=== PATIENT | female | born 1960 | race Caucasian/White ===

== ENCOUNTER 2016-06-12 17:42 | Emergency (ER) | payer BC, OTHER ==
[2016-06-12 18:13] VITALS: BP 122/67
--- NOTE | 2016-06-12 18:44 | UC ---
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 Negative: Redness, Bruising , Fever, Weakness, Numbness, Tingling - Allergies/Home Medications Allergies/Adverse Reactions: Allergies Allergy/AdvReac Type Severity Reaction Status Date / Time Aspirin Allergy Intermediate GI Upset Verified 06/12/16 18:13 Sulfa Drugs Allergy Unknown Unknown Verified 06/12/16 18:13 Reaction Details PMH/Surg Hx/FS Hx/Imm Hx Endocrine History Of: Reports: Thyroid Disease - HYPER Denies: Diabetes Cardiovascular History Of: Denies: Cardiac Disorders, Hypertension Respiratory History Of: Denies: COPD, Asthma GI/ History Of: Denies: Ulcer - Surgical History Surgical History: Yes Surgery Procedure, Year, and Place: C SECT[facility] X'S 2 - Family History Known Family History: Negative: Diabetes - Social History Alcohol Use: None Substance Use Type: None Smoking Status (MU): Heavy Every Day Tobacco Smoker Type: Cigarettes Amount Used/How Often: 1/2 PPD Length of Time of Smoking/Using Tobacco: 10 YRS Have You Smoked in the Last Year: Yes Review of Systems Constitutional: Negative Skin: Negative Eyes: Negative ENT: Negative Respiratory: Negative Cardiovascular: Negative All Other Systems Reviewed And Are Negative: Yes Physical Exam Triage Information Reviewed: Yes Appearance: Well-Appearing, No Pain Distress, Well-Nourished Vital Signs: Initial Vital Signs Temp 99.2 F 06/12/16 18:10 Pulse 74 06/12/16 18:10 Resp 16 06/12/16 18:10 BP 122/67 06/12/16 18:10 Pulse Ox 96 06/12/16 18:10 Vital Signs Reviewed: Yes Eyes: Positive: Conjunctiva Clear ENT: Positive: Normal ENT inspection, Hearing grossly normal Neck exam: Normal Respiratory: Positive: Chest non-tender, Lungs clear, Normal breath sounds Cardiovascular: Positive: RRR, No Murmur, Pulses Normal Musculoskeletal: Positive: Other: - LEFT KNEE : + SWELLING, + EFFUSION, + DIFFUSE TENDERNESS, LIMITED ROM ON FLEXION , LIGAMENTS ARE STABLE Knee Pain Course/Dx - Differential Dx/Diagnosis Provider Diagnoses: LEFT KNEE PAIN. LEFT KNEE EFFUSION Discharge - Discharge Plan Condition: Stable Disposition: HOME Patient Education Materials: Swollen Knee Joint (ED) Referrals: Meg Rain MD [Primary Care Provider] - 7 Days Dandy Pacheco MD [Medical Doctor] -
--- NOTE | 2016-06-12 18:59 | RAD ---
HISTORY: Left knee pain and swelling COMPARISONS: None VIEWS: 4, Frontal, lateral, axial, and oblique views of the left knee FINDINGS: BONE DENSITY: Normal. BONES: There is no displaced fracture. 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 There is no suprapatellar joint effusion or lipohemarthrosis. ALIGNMENT: There is no dislocation. SOFT TISSUES: Unremarkable. OTHER FINDINGS: None. IMPRESSION: NO ACUTE OSSEOUS INJURY. IF SYMPTOMS PERSIST, RECOMMEND REPEAT IMAGING.
== END 2016-06-12 18:55 | disposition home or self-care (01) ==
LOC: UCCORT 17:42
DX: M25.562 Pain in left knee (principal); M25.462 Effusion, left knee; E05.90 Thyrotoxicosis, unspecified without thyrotoxic crisis or storm; Z88.6 Allergy status to analgesic agent; Z88.2 Allergy status to sulfonamides; F17.210 Nicotine dependence, cigarettes, uncomplicated
CPT/HCPCS: 99211; G0463

== ENCOUNTER 2017-01-12 16:48 | Emergency (ER) | payer OTHER ==
--- NOTE | 2017-01-12 17:30 | UC ---
Respiratory Complaint HPI - HPI Summary HPI Summary: 56 year old female presents with dry cough . - History of Current Complaint Stated Complaint: COUGH Time Seen by Provider: 01/12/17 17:30 Hx Obtained From: Patient Onset/Duration: Sudden Onset Severity Initially: Moderate Severity Currently: Moderate - Allergies/Home Medications Allergies/Adverse Reactions: Allergies Allergy/AdvReac Type Severity Reaction Status Date / Time Aspirin Allergy Intermediate GI Upset Verified 01/12/17 17:32 Sulfa Drugs Allergy Unknown Unknown Verified 01/12/17 17:32 Reaction Details PMH/Surg Hx/FS Hx/Imm Hx Previously Healthy: Yes - Surgical History Surgical History: Yes Surgery Procedure, Year, and Place: C [facility] X'S 2 - Family History Known Family History: Negative: Diabetes - Social History Alcohol Use: None Substance Use Type: None Smoking Status (MU): Heavy Every Day Tobacco Smoker Type: Cigarettes Amount Used/How Often: 1/2 PPD Length of Time of Smoking/Using Tobacco: 10 YRS Have You Smoked in the Last Year: Yes Review of Systems Constitutional: Negative Skin: Negative Eyes: Negative ENT: Negative Respiratory: Cough Cardiovascular: Negative Gastrointestinal: Negative Genitourinary: Negative Motor: Negative Neurovascular: Negative Musculoskeletal: Negative Neurological: Negative Psychological: Negative All Other Systems Reviewed And Are Negative: Yes Physical Exam Triage Information Reviewed: Yes Vital Signs Reviewed: Yes Eye Exam: Normal ENT: Positive: Nasal drainage Dental Exam: Normal Neck exam: Normal Neck: Positive: 1 Respiratory Exam: Normal Cardiovascular Exam: Normal Abdominal Exam: Normal Musculoskeletal Exam: Normal Neurological Exam: Normal Psychological Exam: Normal Skin Exam: Normal Respiratory Course/Dx - Differential Dx/Diagnosis Provider Diagnoses: allergic rhinitis. cough Discharge - Discharge Plan Condition: Stable Disposition: HOME Prescriptions: Benzonatate [TESSALON 200 MG CAP] 200 mg PO BID PRN #30 cap PRN Reason: Cough Guaifenesin-Codeine [Cheratussin AC] 1 teasp PO BEDTIME PRN #120 ml MDD 5 ml PRN Reason: Cough LoraTADine TAB(NF) [Claritin 10 MG TAB(NF)] 10 mg PO DAILY #30 tab Patient Education Materials: Allergic Rhinitis (ED) Referrals: Meg Rain MD [Primary Care Provider] -
[2017-01-12 17:38] VITALS: BP 138/86
== END 2017-01-12 18:03 | disposition home or self-care (01) ==
LOC: UCCORT 16:48
DX: J30.9 Allergic rhinitis, unspecified (principal); R05 Cough; Z88.6 Allergy status to analgesic agent; Z88.2 Allergy status to sulfonamides; F17.210 Nicotine dependence, cigarettes, uncomplicated
CPT/HCPCS: 99212; G0463

== ENCOUNTER 2018-06-16 19:18 | Emergency (ER) | payer OTHER ==
[2018-06-16 19:35] VITALS: BP 141/75
--- NOTE | 2018-06-16 19:52 | ED ---
Lower Extremity - HPI Summary HPI Summary: 58 yr old female with left knee swelling, and lower leg swelling. Onset over the past 5 days. She denies SOB, and CP. She has pain in the popliteal fossa as well, and also in the knee joint. She denies fever, chills. She reports she has pain worse with walking and going up stairs. She denies redness, fever , chills. Denies trauma or injury. - History of Current Complaint Chief Complaint: UCLowerExtremity Stated Complaint: LEFT KNEE PAIN Time Seen by Provider: 06/16/18 19:34 Pain Intensity: 5 - Allergies/Home Medications Allergies/Adverse Reactions: Allergies Allergy/AdvReac Type Severity Reaction Status Date / Time aspirin Allergy GI Upset Verified 06/16/18 19:36 Sulfa (Sulfonamide Allergy Unknown Verified 06/16/18 19:36 Antibiotics) Reaction Details PMH/Surg Hx/FS Hx/Imm Hx Endocrine/Hematology History: Reports: Hx Thyroid Disease - HYPER Denies: Hx Diabetes Cardiovascular History: Denies: Hx Hypertension Respiratory History: Reports: Hx Asthma Denies: Hx Chronic Obstructive Pulmonary Disease (COPD) GI History: Denies: Hx Ulcer - Surgical History Surgery Procedure, Year, and Place: C [facility] X'S 2 Infectious Disease History: No Infectious Disease History: Denies: Hx Hepatitis, Hx Human Immunodeficiency Virus (HIV), Traveled Outside the [place] in Last 30 Days - Family History Known Family History: Positive: None Negative: Diabetes - Social History Occupation: Employed Full-time Alcohol Use: None Substance Use Type: Reports: None Smoking Status (MU): Heavy Every Day Tobacco Smoker Type: Cigarettes Amount Used/How Often: 1/2 PPD Length of Time of Smoking/Using Tobacco: 10 YRS Have You Smoked in the Last Year: Yes Review of Systems Constitutional: Negative Positive: Other - left knee swelling and leg swelling. with pain All Other Systems Reviewed And Are Negative: Yes Physical Exam Triage Information Reviewed: Yes Vital Signs On Initial Exam: Initial Vitals Temp Pulse Resp BP Pulse Ox 97.5 F 86 18 141/75 95 06/16/18 19:27 06/16/18 19:27 06/16/18 19:27 06/16/18 19:27 06/16/18 19:27 Vital Signs Reviewed: Yes Appearance: Positive: Well-Appearing, No Pain Distress, Obese Skin: Positive: Warm, Skin Color Reflects Adequate Perfusion Head/Face: Positive: Normal Head/Face Inspection Eyes: Positive: Normal ENT: Positive: Pharynx normal Neck: Positive: Nontender Respiratory/Lung Sounds: Positive: Clear to Auscultation, Breath Sounds Present Cardiovascular: Positive: RRR, Pulses are Symmetrical in both Upper and Lower Extremities. Negative: Murmur Abdomen Description: Negative: Distended Musculoskeletal: Positive: Other - left knee with effusion, and tendernesss as well as swelling and tenderness in the popliteal fossae. No tenderness to the thigh. She has edema to the left lower leg as well. Neuro vasc intact. No increased warmth or erythema to the left knee. Limited ROM due to pain. Neurological: Positive: Sensory/Motor Intact, Alert, Oriented to Person Place, Time, CN Intact II-III, Speech Normal Psychiatric: Positive: Normal Diagnostics - Vital Signs Vital Signs Temp Pulse Resp BP Pulse Ox 06/16/18 19:27 97.5 F 86 18 141/75 95 - Laboratory Lab Statement: Any lab studies that have been ordered have been reviewed, and results considered in the medical decision making process. Lower Extremity Course/Dx - Course Course Of Treatment: 58yr old with swelling to knee joint and lower leg. She will go to the ER for further eval. Declined ambulance transport. - Diagnoses Provider Diagnoses: Effusion, left knee, Pain in left knee, Leg edema, left, Hypertension Discharge - Sign-Out/Discharge Documenting (check all that apply): Patient Departure All imaging exams completed and their final reports reviewed: No Studies - Discharge Plan Condition: Good Disposition: HOME-RECOMMEND TO ED Patient Education Materials: Swollen Knee Joint (ED), Knee Pain (ED), Hypertension (ED) Referrals: Meg Rain MD [Primary Care Provider] - Additional Instructions: you need to go to the ER after leaving here for labs, ultrasound of your leg and further work up of the swelling in the leg and knee. Do not delay. YOu were offered an ambulance but have chosen to have your son drive you. - Billing Disposition and Condition Condition: GOOD Disposition: Home-Recommend to ED
== END 2018-06-16 19:54 | disposition home health service (06) ==
LOC: UCCORT 19:18
DX: M25.462 Effusion, left knee (principal); I10 Essential (primary) hypertension; E05.90 Thyrotoxicosis, unspecified without thyrotoxic crisis or storm; J45.909 Unspecified asthma, uncomplicated; F17.210 Nicotine dependence, cigarettes, uncomplicated; Z88.2 Allergy status to sulfonamides; Z88.6 Allergy status to analgesic agent
CPT/HCPCS: 99212; G0463